=== PATIENT | female | born 1980 | race Caucasian/White ===

== ENCOUNTER → 2017-12-06 | Outpatient (CLI) | payer MEDICARE ==
--- NOTE | 2017-12-06 22:42 | US ---
EXAMINATION TYPE: US thyroid st tissue head/neck DATE OF EXAM: 12/06/2017 COMPARISON: NONE CLINICAL HISTORY: E03.8 HYPOTHYROIDISM; patient stated had radioactive iodine treatment 2004; on thyr oid medication; patient stated has decreasing cerebellum causing ataxia GLAND SIZE: area believed to be thyroid bed is measured Right Lobe: 1.8 x 0.6 x 0.8 cm Overall Parenchyma: heterogenous Left Lobe: 2.1 x 1.0 x 0.3 cm Overall Parenchyma: heterogeneous Isthmus Thickness: 0.1 cm NODULES RIGHT: # of nodules measured on right: 0 LEFT: # of nodules measured on left: 0 ISTHMUS: # of nodules measured in the isthmus: 0 Bilateral neck scanned, no evidence of lymphadenopathy. IMPRESSION: Small heterogeneous remnant thyroid without discrete nodules.
== END | disposition home or self-care (01) ==
LOC: RADUSWWP 16:22
PROVIDERS: ATTEND Internal Medicine Endocrinology, Diabetes & Metabolism
DX: E03.8 Other specified hypothyroidism (principal)
CPT/HCPCS: 76536

== ENCOUNTER → 2017-12-20 | Outpatient (CLI) | payer MEDICARE ==
[2017-12-21 00:08] LABS: ACTH 16.6 pg/mL (0.00-45.99)
== END | disposition home or self-care (01) ==
LOC: LABWHC1 12:33
PROVIDERS: ATTEND Internal Medicine Endocrinology, Diabetes & Metabolism
DX: E03.8 Other specified hypothyroidism (principal); R53.83 Other fatigue
CPT/HCPCS: 36415; 82024; 82533; 84146; 84443

== ENCOUNTER → 2018-01-24 | Outpatient (CLI) | payer MEDICARE ==
[2018-01-24 13:08] LABS: T4, Free (Free Thyroxine) 1.66 ng/dL (0.78-2.19)
== END | disposition home or self-care (01) ==
LOC: LABWHC1 12:21
PROVIDERS: ATTEND Internal Medicine Endocrinology, Diabetes & Metabolism
DX: E03.8 Other specified hypothyroidism (principal)
CPT/HCPCS: 36415; 84439; 84443

== ENCOUNTER → 2018-03-30 | Outpatient (CLI) | payer MEDICARE ==
[2018-03-30 19:21] LABS: ACTH 16.2 pg/mL (0.00-45.99)
== END ==
LOC: LABWHC1 11:01
PROVIDERS: ATTEND Internal Medicine Endocrinology, Diabetes & Metabolism
DX: R53.83 Other fatigue (principal)
CPT/HCPCS: 36415; 82024; 82533; 84146; 84443

== ENCOUNTER → 2018-05-27 | Outpatient (CLI) | payer MEDICARE | LOC: LABWHC1 11:46 | PROVIDERS: ATTEND Internal Medicine Endocrinology, Diabetes & Metabolism | DX: E03.8 Other specified hypothyroidism (principal) | CPT/HCPCS: 36415; 84443 ==

== ENCOUNTER → 2018-07-25 | Outpatient (CLI) | payer MEDICARE ==
--- NOTE | 2018-07-26 09:11 | MR ---
EXAMINATION TYPE: MR brain wo/w con DATE OF EXAM: 07/25/2018 COMPARISON: Prior brain MR 01/14/2013 HISTORY: New onset headache, known spinocerebellar ataxia syndrome TECHNIQUE: Multiplanar, multisequence images of the brain and brainstem is performed without and with IV contras t, utilizing 7.5 mL intravenous Gadavist . FINDINGS: Diffusion weighted images demonstrate no evidence of a recent infarct or other diffusion ab normality. There is no extra-axial fluid collection. Some mild confluent periventricular white foreign er hyperintensity noted on inversion recovery and T2-weighted sequences is conspicuous as compared to prior, focus of hyperintensity in the deep white matter the right frontal lobe axial image 14 is sta ble measuring approximately 4 mm The ventricular system and cisternal spaces are normal in size and a ppearance. The brain volume is age appropriate. Midline structures demonstrate near stable morphology, there is a partially empty sella, appearance m ay have progressed somewhat in the interval. Cerebellar atrophy has progressed. The craniocervical ju nction appears within normal limits. Post contrast images demonstrate no abnormal enhancement. The d ural venous sinuses appear patent. The visualized sinuses are remarkable for mucoperiosteal thickenin g in the bilateral maxillary sinuses, ethmoid air cells, and the globes are intact. IMPRESSION: There has been progression in the cerebellar atrophy as described. Sinus disease and humble tional findings above.
== END | disposition home or self-care (01) ==
LOC: RADMRIMAIN 14:38
PROVIDERS: ATTEND Psychiatry & Neurology Neurology
DX: G31.9 Degenerative disease of nervous system, unspecified (principal); R90.89 Other abnormal findings on diagnostic imaging of central nervous system; G44.52 New daily persistent headache (NDPH); G11.8 Other hereditary ataxias
CPT/HCPCS: 70553; A9585

== ENCOUNTER → 2018-07-25 | Outpatient (CLI) | payer MEDICARE ==
[2018-07-25 13:00] LABS: Basophils # (A) 0.1 k/uL (0-0.2); Basophils % (A) 1 %; Eosinophils # (A) 0.3 k/uL (0-0.7); Eosinophils % (A) 3 %; HCT 42.6 % (34.0-46.0); HGB 13.8 gm/dL (11.4-16.0); Lymphocytes # (A) 2.4 k/uL (1.0-4.8); Lymphocytes % (A) 27 %; MCH 29.5 pg (25.0-35.0); MCHC 32.4 g/dL (31.0-37.0); Monocytes # (A) 0.6 k/uL (0-1.0); Monocytes % (A) 6 %; Neutrophils # (A) 5.4 k/uL (1.3-7.7); Neutrophils % (A) 61 %; Platelet Count 379 k/uL (150-450); RBC 4.68 m/uL (3.80-5.40); RDW 12.3 % (11.5-15.5); WBC 8.8 k/uL (3.8-10.6)
[2018-07-25 18:49] LABS: Albumin 4.3 g/dL (3.80-4.90); Albumin/Globulin Ratio 1.72 (1.60-3.17); Anion Gap 10.2 mmol/L (4.00-12.00); Calcium 9.7 mg/dL (8.7-10.3); Carbon Dioxide 22.8 mmol/L (21.6-31.8); Globulin 2.5 g/dL (1.6-3.3); LDL Cholesterol,Calculated 80.4 mg/dL (0.0-131.0); Potassium 4.5 mmol/L (3.5-5.5); T4, Free (Free Thyroxine) 1.5 ng/dL (0.80-1.80); Total Bilirubin 0.7 mg/dL (0.2-1.2); Total Protein 6.8 g/dL (6.2-8.2); VLDL Calculation 12.6 mg/dL (5.00-40.00)
== END | disposition home or self-care (01) ==
LOC: LABWHC1 11:01
PROVIDERS: ATTEND Internal Medicine Endocrinology, Diabetes & Metabolism
DX: Z00.00 Encounter for general adult medical examination without abnormal findings (principal); E03.8 Other specified hypothyroidism
CPT/HCPCS: 36415; 80053; 80061; 84439; 84443; 85025

== ENCOUNTER → 2018-08-25 | Outpatient (CLI) | payer MEDICARE ==
--- NOTE | 2018-08-25 09:09 | MM ---
Reason for exam: screening (asymptomatic). Baseline mammogram. History: Patient is nulliparous. Physical Findings: Nurse did not find any significant physical abnormalities on exam. MG 3D Screening Mammo W/Cad Bilateral CC, MLO, and XCCL view(s) were taken. The breast tissue is heterogeneously dense. This may lower the sensitivity of mammography. No suspicious calcifications are seen. Bilateral intramammary lymph nodes. These results were verbally communicated with the patient and result sheet given to the patient on 08/25/18. ASSESSMENT: Benign, BI-RAD 2 RECOMMENDATION: Routine screening mammogram of both breasts in 1 year.
== END | disposition home or self-care (01) ==
LOC: RADMAMWWP 08:04
PROVIDERS: ATTEND Family Medicine
DX: Z12.31 Encounter for screening mammogram for malignant neoplasm of breast (principal)
CPT/HCPCS: 77063; 77067

== ENCOUNTER → 2018-09-19 | Outpatient (CLI) | payer MEDICARE | LOC: LABWHC1 17:06 | PROVIDERS: ATTEND Internal Medicine Endocrinology, Diabetes & Metabolism | DX: E03.8 Other specified hypothyroidism (principal) | CPT/HCPCS: 36415; 84443; 84445; 86376 ==

== ENCOUNTER → 2018-12-23 | Outpatient (CLI) | payer MEDICARE | END | disposition home or self-care (01) | LOC: LABWHC1 16:36 | PROVIDERS: ATTEND Internal Medicine Endocrinology, Diabetes & Metabolism | DX: E03.8 Other specified hypothyroidism (principal) | CPT/HCPCS: 36415; 84443 ==

== ENCOUNTER 2019-01-19 13:55 | Emergency (ER) | payer MEDICARE ==
[2019-01-19] MEDS ORDERED: HYDROcodone/APAP 7.5-325MG 1 EACH TAB PO ONE (14:19)
--- NOTE | 2019-01-19 14:29 | ED ---
General Adult HPI - General Stated complaint: Ankle injury Time Seen by Provider: 01/19/19 14:17 Source: RN notes reviewed, old records reviewed - History of Present Illness Initial comments: 38-year-old female patient past medical history of ataxia, movement disorder presents ED chief complaint of fall, left ankle injury. Patient reports that she stumbled, falling forward. Patient reports that she felt as if her left ankle hyper plantar flexed. 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 Patient has not been ambulatory since fall. Denies any other complaints at this time. Denies any trauma to head or neck,. Systemic: Pt denies fatigue, fever/chills, rash. Pt denies weakness, night sweats, weight loss. Neuro: Pt denies headache, visual disturbances, syncope or pre-syncope. HEENT: Pt denies ocular discharge or irritation, otalgia, rhinorrhea, pharyngitis or notable lymphadenopathy. Cardiopulmonary: Pt denies chest pain, SOB, heart palpitations, dyspnea on exertion. Abdominal/GI: Pt denies abdominal pain, n/v/d. : Pt denies dysuria, burning w/ urination, frequency/urgency. Denies new onset urinary or bowel incontinence. MSK: Pt denies loss of strength or function in extremities. Neuro: Pt denies new onset weakness, paresthesias. - Related Data Home Medications Medication Instructions Recorded Confirmed Apple Cider Vinegar Liquid 1 tsp PO Q2D 03/25/17 03/31/17 Cholecalciferol [Vitamin D3] 5,000 unit PO DAILY 03/25/17 03/31/17 Cider Vinegar [Apple Cider Vinegar] 450 mg PO DAILY 03/25/17 03/31/17 Cyanocobalamin (Vitamin B-12) 1,000 mcg PO DAILY 03/25/17 03/31/17 [Vitamin B-12] FLUoxetine HCL [PROzac] 10 mg PO HS 03/25/17 03/31/17 Ferrous Sulfate [Iron (65 MG 325 mg PO DAILY 03/25/17 03/31/17 Elemental)] Levothyroxine Sodium 150 mcg PO DAILY 03/25/17 03/31/17 Tumeric 500 mg PO DAILY 03/25/17 03/31/17 Previous Rx's Medication Instructions Recorded Docusate [Colace] 100 mg PO BID #30 capsule 11/01/17 Hydrocodone/Acetaminophen [[place] 1 each PO Q6HR PRN #10 tab 03/31/17 5-325] Allergies Allergy/AdvReac Type Severity Reaction Status Date / Time Sulfa (Sulfonamide Allergy Itching Verified 03/31/17 07:19 Antibiotics) Review of Systems ROS Statement: Those systems with pertinent positive or pertinent negative responses have been documented in the HPI. ROS Other: All systems not noted in ROS Statement are negative. Past Medical History Past Medical History: Thyroid Disorder Additional Past Medical History / Comment(s): GALLBLADDER DISORDER. SPEECH IMPEDIMENT R/T SPINAL CEREBRAL ATAXIA History of Any Multi-Drug Resistant Organisms: None Reported Past Surgical History: Appendectomy Past Anesthesia/Blood Transfusion Reactions: Motion Sickness Smoking Status: Never smoker - Past Family History Father Family Medical History: Deep Vein Thrombosis (DVT) General Exam - General Exam Comments Initial Comments: Constitutional: NAD, AOX3, Pt has pleasant affect. HEENT: NC/AT, trachea midline, neck supple, no lymphadenopathy. Posterior pharynx non erythematous, without exudates. External ears appear normal, without discharge. Mucous membranes moist. Eyes PERRLA, EOM intact. There is no scleral icterus. No pallor noted. Cardiopulmonary: RRR, no murmurs, rubs or gallops, no JVD noted. Lungs CTAB in anterior and posterior holly. No peripheral edema. Abdominal exam: Abdomen soft and non-distended. Abdomen non-tender to palpation in all 4 quadrants. Bowel sounds active in LLQ. No hepatosplenomegaly. No ecchymosis Neuro: CN II-XII grossly intact. No nuchal rigidity. No raccon eyes, no gillette sign, no hemotympanum. No cervical spinal tenderness. MSK: Right medial malleolus tender to palpation, plantar and dorsiflexion intact but limited secondary to pain, distal pulses intact and equal, refill less than 2 seconds. No proximal tibia/fibular tenderness. Moderate amount of right lateral foot tenderness. No other areas of tenderness and foot. No ecchymoses. Patient placed in a posterior ankle splint, neurovascularly intact after splint placement. No posterior calf tenderness bilaterally, homans sign negative bilaterally. Posterior tibialis and radial pulse +2 bilaterally. Sensation intact in upper and lower extremities. Full active ROM in upper and lower extremities, 5/5 stregnth. Course Vital Signs 01/19/19 14:15 Temperature 98.9 F Pulse Rate 81 Respiratory 18 Rate Blood Pressure 119/72 O2 Sat by Pulse 98 Oximetry Medical Decision Making - Medical Decision Making 38-year-old female patient past medical history of ataxia, movement disorder presents ED chief complaint of fall, left ankle injury. Patient reports that she stumbled, falling forward. Patient reports that she felt as if her left ankle hyper plantar flexed. 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 Patient has not been ambulatory since fall. Denies any other complaints at this time. Denies any trauma to head or neck,. Patient vital signs stable, afebrile. Patient states there is no chance that she can be . Physical exam displayed: Right medial malleolus tender to palpation, plantar and dorsiflexion intact but limited secondary to pain, distal pulses intact and equal, refill less than 2 seconds. No proximal tibia/fibular tenderness. Moderate amount of right lateral foot tenderness. No other areas of tenderness and foot. No ecchymoses. Patient placed in a posterior ankle splint, neurovascularly intact after splint placement. Plain film of foot and ankle displaced a minimally displaced spiral type fracture to the lateral malleolus. Patient placed in a posterior ankle splint, patient will use wheelchair at home, will not bear weight. We discharge, follow up with primary care provider and orthopedic consult in 1-2 days. Case discussed with Dr. Dunham. Disposition Clinical Impression: Lateral malleolar fracture Disposition: HOME SELF-CARE Condition: Stable Instructions (If sedation given, give patient instructions): Ankle Fracture (ED) Additional Instructions: Patient to adhere to previously discussed treatment plan and will take medication(s) as directed. Patient to follow up with PCP in 1-2 days. Patient to return to ED if symptoms do not improve. Follow-up with orthopedic consult tomorrow. Do not bear weight. Use wheelchair at home. Return to ER if condition worsens. Is patient prescribed a controlled substance at d/c from ED?: No Referrals: Rahul Greer MD [Primary Care Provider] - 1-2 days Catarino Dodson PAC [PHYSICIAN MAINTENANCE MECHANIC] - 1-2 days
--- NOTE | 2019-01-19 14:57 | XR ---
EXAMINATION TYPE: XR ankle complete LT, XR foot complete LT DATE OF EXAM: 01/19/2019 CLINICAL HISTORY: Pain after falling injury today. TECHNIQUE: Frontal, lateral and oblique images of the left ankle and foot are obtained. COMPARISON: None. FINDINGS: There is acute spiral minimally displaced fracture through the lateral malleolus at level of ankle mortise. The medial and posterior malleoli are intact. Ankle mortise appears within normal l imits. Mild to moderate lateral soft tissue swelling is seen. There is no acute fracture or dislocation evident in the left foot. Flexion distal third through fift h toes is present. Overlying soft tissue shows mild subcutaneous edema. IMPRESSION: There is acute minimally displaced spiral type fracture through lateral malleolus. (Initial encounter closed type posttraumatic fracture)
[2019-01-19] MEDS ORDERED: ACET/COD 300 MG/30 MG STARTER PACK 6 TAB BTL PO STA (15:17)
[2019-01-19 15:39] VITALS: BP 125/65; PULSE 70; RESP 17; TEMP 99.1
== END 2019-01-19 15:40 | disposition home or self-care (01) ==
LOC: EC 13:55
DX: S82.62XA Displaced fracture of lateral malleolus of left fibula, initial encounter for closed fracture (principal); E07.9 Disorder of thyroid, unspecified; F32.9 Major depressive disorder, single episode, unspecified; Z88.2 Allergy status to sulfonamides; Z79.890 Hormone replacement therapy; Z79.899 Other long term (current) drug therapy; W01.0XXA Fall on same level from slipping, tripping and stumbling without subsequent striking against object, initial encounter; Y93.89 Activity, other specified; Y92.009 Unspecified place in unspecified non-institutional (private) residence as the place of occurrence of the external cause
CPT/HCPCS: 29515; 99284

== ENCOUNTER 2019-02-19 13:54 | Emergency (ER) | payer MEDICARE ==
[2019-02-19 13:59] VITALS: TEMP 98.5
[2019-02-19] MEDS ORDERED: MORPHINE SULFATE 4 MG/ML SYRINGE IV STA (14:41)
[2019-02-19] MEDS ORDERED: SODIUM CHLORIDE 0.9% 1,000 ML IV STA (14:41)
[2019-02-19 15:04] LABS: Basophils # (A) 0.1 k/uL (0-0.2); Basophils % (A) 1 %; Eosinophils # (A) 0.4 k/uL (0-0.7); Eosinophils % (A) 4 %; HCT 40.7 % (34.0-46.0); HGB 13.7 gm/dL (11.4-16.0); Lymphocytes # (A) 1.6 k/uL (1.0-4.8); Lymphocytes % (A) 17 %; MCH 29.7 pg (25.0-35.0); MCHC 33.8 g/dL (31.0-37.0); MCV 87.9 fL (80.0-100.0); Mean Platelet Volume 6.2; Monocytes # (A) 0.6 k/uL (0-1.0); Monocytes % (A) 6 %; Neutrophils # (A) 6.5 k/uL (1.3-7.7); Neutrophils % (A) 70 %; Platelet Count 401 k/uL (150-450); RBC 4.63 m/uL (3.80-5.40); WBC 9.2 k/uL (3.8-10.6)
--- NOTE | 2019-02-19 15:06 | ED ---
Headache HPI - General Chief Complaint: Headache Stated Complaint: Head and Neck Pain Time Seen by Provider: 02/19/19 14:02 Source: RN notes reviewed, old records reviewed Mode of arrival: wheelchair Limitations: no limitations - History of Present Illness Initial Comments: This is a 38-year-old female the ER for evaluation patient resents today for ramiro luation of neck pain significant left-sided neck tenderness. Patient thought she may have slept wrong but is unable to find comfortable today. Patient did take a [place] with no help. Patient denies trauma no fevers. No neurological complaints. Patient does have significant history of neurologic disease cerebellar ataxia. No new medications. Only new medication is a [place] which she has further ankle fracture which is currently casted. MD Complaint: headache, other (Left-sided neck pain) -: hour(s) Onset Description: gradual Location: left, occipital Severity: severe Severity scale (1-10): 8 Quality: aching, sharp Consistency: constant Improves With: nothing Worsens With: none Context: occurred at rest Associated Symptoms: neck stiffness Treatments Prior to Arrival: none - Related Data Home Medications Medication Instructions Recorded Confirmed FLUoxetine HCL [PROzac] 20 mg PO DAILY 02/19/19 02/19/19 Hydrocodone/Acetaminophen [[place] 1 tab PO Q6HR PRN 02/19/19 02/19/19 5-325] Levothyroxine Sodium [Synthroid] 100 mcg PO DAILY 02/19/19 02/19/19 Allergies Allergy/AdvReac Type Severity Reaction Status Date / Time Sulfa (Sulfonamide Allergy Itching Verified 02/19/19 14:35 Antibiotics) Review of Systems ROS Statement: Those systems with pertinent positive or pertinent negative responses have been documented in the HPI. ROS Other: All systems not noted in ROS Statement are negative. Past Medical History Past Medical History: Thyroid Disorder Additional Past Medical History / Comment(s): GALLBLADDER DISORDER. SPEECH IMPEDIMENT R/T SPINAL CEREBRAL ATAXIA History of Any Multi-Drug Resistant Organisms: None Reported Past Surgical History: Appendectomy Past Anesthesia/Blood Transfusion Reactions: Motion Sickness Past Psychological History: Depression Smoking Status: Never smoker - Past Family History Father Family Medical History: Deep Vein Thrombosis (DVT) General Exam Limitations: no limitations General appearance: alert, in no apparent distress Head exam: Present: atraumatic, normocephalic, normal inspection Eye exam: Present: normal appearance, PERRL, EOMI. Absent: scleral icterus, conjunctival injection, periorbital swelling ENT exam: Present: normal exam, mucous membranes moist Neck exam: Present: normal inspection, other (Does have left-sided paracervical tenderness). Absent: tenderness, meningismus, lymphadenopathy Respiratory exam: Present: normal lung sounds bilaterally. Absent: respiratory distress, wheezes, rales, rhonchi, stridor Cardiovascular Exam: Present: regular rate, normal rhythm, normal heart sounds. Absent: systolic murmur, diastolic murmur, rubs, gallop, clicks GI/Abdominal exam: Present: soft, normal bowel sounds. Absent: distended, tenderness, guarding, rebound, rigid Extremities exam: Present: normal inspection, full ROM, normal capillary refill. Absent: tenderness, pedal edema, joint swelling, calf tenderness Back exam: Present: normal inspection Neurological exam: Present: alert, oriented X3, CN II-XII intact Psychiatric exam: Present: normal affect, normal mood Skin exam: Present: warm, dry, intact, normal color. Absent: rash Course Vital Signs 02/19/19 02/19/19 02/19/19 13:57 15:30 16:30 Temperature 98.5 F Pulse Rate 87 74 Respiratory 16 18 18 Rate Blood Pressure 123/81 120/88 115/88 O2 Sat by Pulse 99 93 L 99 Oximetry - Reevaluation(s) Reevaluation #1: 02/19/19 15:19 Medical records reviewed Reevaluation #2: 02/19/19 15:19 Did speak with patient's neurologist in regards to patient's symptoms, Medical Decision Making - Medical Decision Making 38 female the ER was significant left-sided paraspinal tenderness, will try Li doderm locally patient to continue [place] for pain and can be discharged home - Lab Data Result diagrams: 02/19/19 14:53 02/19/19 14:53 Lab Results 02/19/19 02/19/19 Range/Units 14:53 14:53 WBC 9.2 (3.8-10.6) k/uL RBC 4.63 (3.80-5.40) m/uL Hgb 13.7 (11.4-16.0) gm/dL Hct 40.7 (34.0-46.0) % MCV 87.9 (80.0-100.0) fL MCH 29.7 (25.0-35.0) pg MCHC 33.8 (31.0-37.0) g/dL RDW 13.0 (11.5-15.5) % Plt Count 401 (150-450) k/uL Neutrophils % 70 % Lymphocytes % 17 % Monocytes % 6 % Eosinophils % 4 % Basophils % 1 % Neutrophils # 6.5 (1.3-7.7) k/uL Lymphocytes # 1.6 (1.0-4.8) k/uL Monocytes # 0.6 (0-1.0) k/uL Eosinophils # 0.4 (0-0.7) k/uL Basophils # 0.1 (0-0.2) k/uL Sodium 138 (137-145) mmol/L Potassium 3.9 (3.5-5.1) mmol/L Chloride 104 (98-107) mmol/L Carbon Dioxide 24 (22-30) mmol/L Anion Gap 10 mmol/L BUN 12 (7-17) mg/dL Creatinine 0.85 (0.52-1.04) mg/dL Est GFR (CKD-EPI)AfAm >90 (>60 ml/min/1.73 sqM) Est GFR (CKD-EPI)NonAf 86 (>60 ml/min/1.73 sqM) Glucose 92 (74-99) mg/dL Calcium 9.6 (8.4-10.2) mg/dL Total Bilirubin 0.7 (0.2-1.3) mg/dL AST 53 H (14-36) U/L ALT 53 H (9-52) U/L Alkaline Phosphatase 266 H (38-126) U/L Total Protein 8.1 (6.3-8.2) g/dL Albumin 4.5 (3.5-5.0) g/dL - Radiology Data Radiology results: report reviewed (CT brain C-spine CT head and neck negative for acute disease), image reviewed Disposition Clinical Impression: Headache, Neck pain Disposition: HOME SELF-CARE Condition: Good Instructions (If sedation given, give patient instructions): Acute Headache (ED) Is patient prescribed a controlled substance at d/c from ED?: No Referrals: Rahul Greer MD [Primary Care Provider] - 1-2 days
[2019-02-19 15:13] LABS: ALT 53 U/L (9-52); AST 53 U/L (14-36); African American GFR (CKD) >90 (>60 ml/min/1.73 sqM); Albumin 4.5 g/dL (3.5-5.0); Alkaline Phosphatase 266 U/L (38-126); Anion Gap 10 mmol/L; Blood Urea Nitrogen 12 mg/dL (7-17); Calcium 9.6 mg/dL (8.4-10.2); Carbon Dioxide 24 mmol/L (22-30); Chloride 104 mmol/L (98-107); Glucose 92 mg/dL (74-99); Potassium 3.9 mmol/L (3.5-5.1); Sodium 138 mmol/L (137-145); Total Bilirubin 0.7 mg/dL (0.2-1.3); Total Protein 8.1 g/dL (6.3-8.2)
--- NOTE | 2019-02-19 16:06 | CT ---
EXAMINATION TYPE: CT brain philip ariza DATE OF EXAM: 02/19/2019 COMPARISON: None HISTORY: Head/neck pain. Pt sent to ER by neurologist. Pt hx speech impediment R/T spinal cerebral at axia. Pt experiencing tremors. CT DLP: 1538.5 mGycm Automated exposure control for dose reduction was used. TECHNIQUE: CT scan of the head and cervical spine are performed without contrast. FINDINGS: Ventricles have normal size. There is no mass effect nor midline shift. There is no sign of intracranial hemorrhage. The calvarium is intact. There is cerebellar atrophy. Cervical vertebra have fairly normal spacing and alignment. Posterior elements are intact. Facet join ts are intact. Skull base is intact. IMPRESSION: There is moderate cerebellar diffuse atrophy. No acute intracranial abnormality. Negative CT scan cervical spine. No fracture.
[2019-02-19 16:11] VITALS: RESP 18
[2019-02-19] MEDS ORDERED: HYDROmorphone 0.5 MG/0.5 ML SYRINGE IVP STA (16:22)
[2019-02-19 16:31] VITALS: BP 115/88; PULSE 74
--- NOTE | 2019-02-19 16:33 | CT ---
EXAMINATION TYPE: CT angio head neck DATE OF EXAM: 02/19/2019 HISTORY: Head/neck pain. Pt sent to ER by neurologist. Pt hx speech impediment R/T spinal cerebral at axia. Pt experiencing tremors COMPARISON: CT DLP: 640.1 mGycm. Automated Exposure Control for Dose Reduction was Utilized. TECHNIQUE: CTA scan of the neck is performed with IV Contrast, patient injected with 65 mL of Isovue 370, axial images are obtained, coronal and sagittal reformatted images are reviewed. Three-D recons tructed images are created on an independent workstation and reviewed. FINDINGS: There is normal branching pattern of the great vessels on the aortic arch. There is arterial flow in the subclavian arteries bilaterally. There is arterial flow in the common internal and external carot id arteries bilaterally. There is wide patency of the carotid artery bifurcations. There is bilateral arterial flow in the vertebral arteries. Basilar artery fills mainly from the right side. There is n o evidence of carotid or vertebral artery aneurysm or dissection. There is no evidence of hemodynamic stenosis. There is arterial flow in the anterior middle and posterior cerebral arteries. There is arterial flow in the vertebrobasilar artery system. I see no evidence of hemodynamic stenosis. There is normal con trast opacification of the venous sinuses. There is moderate cerebellar cortical atrophy noted. There is no sign of intracranial aneurysm or neovascularity. There is no mass effect. IMPRESSION: Negative CT angiogram of the neck. Negative CT angiogram of the brain.
[2019-02-19] MEDS ORDERED: LIDOCAINE 4% CREAM 5 GM TUBE TOPICAL STA (16:51)
== END 2019-02-19 17:24 | disposition home or self-care (01) ==
LOC: EC 13:54
DX: R51 Headache (principal); M54.2 Cervicalgia; E07.9 Disorder of thyroid, unspecified; F32.9 Major depressive disorder, single episode, unspecified; Z86.69 Personal history of other diseases of the nervous system and sense organs; Z87.19 Personal history of other diseases of the digestive system; Z90.49 Acquired absence of other specified parts of digestive tract; Z79.890 Hormone replacement therapy; Z79.899 Other long term (current) drug therapy; Z88.2 Allergy status to sulfonamides
CPT/HCPCS: 36415; 80053; 85025; 72125; 70496; 70450; 70498; 99284; 96374; 96375; 96361; J2270; J1170; Q9967

== ENCOUNTER → 2019-04-24 | Outpatient (CLI) | payer MEDICARE ==
[2019-04-24 11:07] LABS: Basophils # (A) 0.1 k/uL (0-0.2); Basophils % (A) 1 %; Eosinophils # (A) 0.4 k/uL (0-0.7); Eosinophils % (A) 4 %; Lymphocytes # (A) 2.2 k/uL (1.0-4.8); Lymphocytes % (A) 24 %; MCH 29.8 pg (25.0-35.0); MCHC 32.6 g/dL (31.0-37.0); MCV 91.4 fL (80.0-100.0); Mean Platelet Volume 5.6; Monocytes # (A) 0.6 k/uL (0-1.0); Monocytes % (A) 7 %; Neutrophils # (A) 5.6 k/uL (1.3-7.7); Neutrophils % (A) 63 %; Platelet Count 403 k/uL (150-450); RBC 4.37 m/uL (3.80-5.40); RDW 12.9 % (11.5-15.5)
[2019-04-24 16:00] LABS: Luteinizing Hormone 8.3 mIU/mL
[2019-04-24 16:03] LABS: Albumin 4.3 g/dL (3.80-4.90); Albumin/Globulin Ratio 1.65 (1.60-3.17); Anion Gap 6.5 mmol/L (4.00-12.00); BUN/Creat Ratio 12.22 Ratio (12.00-20.00); Calcium 9.6 mg/dL (8.7-10.3); Carbon Dioxide 25.5 mmol/L (21.6-31.8); Globulin 2.6 g/dL (1.6-3.3); Non-African American GFR(CKD) 79.4 (60.0-200.0); Potassium 4.1 mmol/L (3.5-5.5); T4, Free (Free Thyroxine) 0.8 ng/dL (0.80-1.80); Total Bilirubin 0.6 mg/dL (0.2-1.2); Total Protein 6.9 g/dL (6.2-8.2)
[2019-04-25 14:18] LABS: Estrogens Total 242 pg/mL
== END | disposition home or self-care (01) ==
LOC: LABWHC1 10:08
PROVIDERS: ATTEND Family Medicine
DX: N95.1 Menopausal and female climacteric states (principal); R74.8 Abnormal levels of other serum enzymes; E05.90 Thyrotoxicosis, unspecified without thyrotoxic crisis or storm
CPT/HCPCS: 36415; 80053; 82040; 82150; 82672; 83001; 83002; 83690; 84270; 84403; 84439; 84443; 84481; 85025; 86376

== ENCOUNTER → 2019-05-19 | Outpatient (CLI) | payer MEDICARE ==
--- NOTE | 2019-05-19 09:17 | US ---
EXAMINATION TYPE: US liver DATE OF EXAM: 05/19/2019 COMPARISON: NONE CLINICAL HISTORY: R74.8 abnormal levels of other serum enzymes. EXAM MEASUREMENTS: Liver Length: 14.3 cm Gallbladder Wall: Surgically absent CBD: 0.4 cm Right Kidney: 9.8 x 4.2 x 4.1 cm Pancreas: Obscured by bowel gas Liver: There is a 0.8 x 0.6 cm x 0.6 hyperechoic area in the left lobe liver could be a small les ioma. Gallbladder: Surgically absent Evidence for sonographic Cage's sign: No CBD: wnl as visualized, distal portion obscured by bowel gas Right Kidney: No hydronephrosis or masses seen IMPRESSION: 1. Probable small hemangioma within the liver.
== END | disposition home or self-care (01) ==
LOC: RADUSWWP 08:31
PROVIDERS: ATTEND Family Medicine
DX: R74.8 Abnormal levels of other serum enzymes (principal)
CPT/HCPCS: 76705

== ENCOUNTER → 2019-06-16 | Outpatient (CLI) | payer MEDICARE | END | disposition home or self-care (01) | LOC: LABWHC1 11:44 | PROVIDERS: ATTEND Internal Medicine Endocrinology, Diabetes & Metabolism | DX: E03.8 Other specified hypothyroidism (principal) | CPT/HCPCS: 36415; 84443 ==

== ENCOUNTER → 2019-11-14 | Outpatient (CLI) | payer MEDICARE ==
--- NOTE | 2019-11-14 14:37 | MR ---
EXAMINATION TYPE: MR brain wo con DATE OF EXAM: 11/14/2019 COMPARISON: 07/25/2018 HISTORY: Cerebellar ataxia syndrome, compare to prior MR on progression of cerebellar atrophy CONTRAST: Performed utilizing 0 mL intravenous Gadavist gadolinium contrast. TECHNIQUE: Multiplanar, multiecho imaging on a 3.0 Jessica magnet is performed through the brain. Stud y is performed within 24 hours of arrival to the hospital. The craniovertebral junction is normal. The pituitary is normal. Diffusion-weighted imaging is performed. No abnormal hyperintensity is present to suggest an acute i ntracranial infarct or acute ischemic change. There are scattered punctate areas of hyperintensity on T2 and Inversion Recovery weighted sequences which are non-specific but can be related to microvascular ischemic changes. Largest area in the subc ortical white matter change in the right frontal lobe measuring 0.4 cm. Some periventricular white ma tter changes present. Some minimal change may be within the brainstem. There is prominent cerebellar fovea. Advanced cerebellar atrophy is present on the remainder of the brain. Ventricles and sulci are otherwise appropriate for the patient age. COMPARISON: Findings appear stable over the interval from 07/25/2018. Cerebral atrophy and white matte r changes appear unchanged. IMPRESSIONS: 1. Prominent stable cerebellar atrophy out of proportion with the remainder of the brain.
== END | disposition home or self-care (01) ==
LOC: RADMRIMAIN 12:58
PROVIDERS: ATTEND Psychiatry & Neurology Neurology
DX: G11.9 Hereditary ataxia, unspecified (principal); G31.9 Degenerative disease of nervous system, unspecified
CPT/HCPCS: 70551

== ENCOUNTER → 2019-12-12 | Outpatient (CLI) | payer MEDICARE | END | disposition home or self-care (01) | LOC: LABWHC1 13:41 | PROVIDERS: ATTEND Internal Medicine Endocrinology, Diabetes & Metabolism | DX: E03.8 Other specified hypothyroidism (principal) | CPT/HCPCS: 36415; 84443 ==

== ENCOUNTER → 2020-06-11 | Outpatient (CLI) | payer MEDICARE ==
[2020-06-11 13:23] LABS: HCG,Qualitative Serum Detected
== END | disposition home or self-care (01) ==
LOC: LABWHC1 12:17
PROVIDERS: ATTEND Internal Medicine Endocrinology, Diabetes & Metabolism
DX: Z33.1 Pregnant state, incidental (principal); E03.8 Other specified hypothyroidism
CPT/HCPCS: 36415; 84439; 84443; 84480; 84703

== ENCOUNTER → 2020-09-03 | Outpatient (CLI) | payer MEDICARE, OTHER | END | disposition home or self-care (01) | LOC: LABWHC1 13:22 | PROVIDERS: ATTEND Internal Medicine Endocrinology, Diabetes & Metabolism | DX: E03.8 Other specified hypothyroidism (principal) | CPT/HCPCS: 36415; 84443 ==

== ENCOUNTER → 2020-10-22 | Outpatient (CLI) | payer MEDICARE, OTHER ==
[2020-10-23 14:00] LABS: T4, Free (Free Thyroxine) 1.4 ng/dL (0.80-1.80)
== END | disposition home or self-care (01) ==
LOC: LABWHC1 14:54
PROVIDERS: ATTEND Internal Medicine Endocrinology, Diabetes & Metabolism
DX: E03.8 Other specified hypothyroidism (principal)
CPT/HCPCS: 36415; 84439; 84443

== ENCOUNTER → 2020-12-31 | Outpatient (CLI) | payer MEDICARE, OTHER ==
[2021-01-01 09:55] LABS: T4, Free (Free Thyroxine) 1.2 ng/dL (0.80-1.80)
== END | disposition home or self-care (01) ==
LOC: LABWHC1 15:24
PROVIDERS: ATTEND Internal Medicine Endocrinology, Diabetes & Metabolism
DX: E03.8 Other specified hypothyroidism (principal)
CPT/HCPCS: 36415; 84439; 84443

== ENCOUNTER 2021-06-03 17:50 | Emergency (ER) | payer MEDICARE, OTHER ==
[2021-06-03 18:45] VITALS: BP 98/65; PULSE 80; RESP 20; TEMP 99.4
--- NOTE | 2021-06-03 20:46 | ED ---
URI HPI - General Chief Complaint: Upper Respiratory Infection Stated Complaint: SOB Time Seen by Provider: 06/03/21 20:20 Source: patient Mode of arrival: wheelchair Limitations: no limitations - History of Present Illness Initial Comments: 41-year-old female patient presents to the emergency department today for evaluation of body aches, cough, shortness of breath, fevers for the last 10 days. Patient states she was exposed to COVID-19 so assumed she had it. States that she is not getting better so she came in for further evaluation. She has not been taking any medication other than [id number] Aleve-D. States she has taken Tylenol intermittently. Reports nausea, no vomiting. Denies any diarrhea. 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 Denies any other medical problems. - Related Data Home Medications Medication Instructions Recorded Confirmed FLUoxetine HCL [PROzac] 20 mg PO DAILY 02/19/19 02/19/19 Hydrocodone/Acetaminophen [[place] 1 tab PO Q6HR PRN 02/19/19 02/19/19 5-325] Levothyroxine Sodium [Synthroid] 100 mcg PO DAILY 02/19/19 02/19/19 Previous Rx's Medication Instructions Recorded Albuterol Sulfate [Proair Hfa] 1 - 2 puff INHALATION Q6HR PRN 06/03/21 #8.5 gm Dexamethasone 6 mg PO DAILY #10 tablet 06/03/21 Metoclopramide [Reglan] 10 mg PO Q8H PRN #20 tab 06/03/21 guaiFENesin-DM 600/30MG [Mucinex 2 each PO Q12HR PRN #20 tab 06/03/21 Dm] Allergies Allergy/AdvReac Type Severity Reaction Status Date / Time Sulfa (Sulfonamide Allergy Itching Verified 06/03/21 18:45 Antibiotics) Review of Systems ROS Statement: Those systems with pertinent positive or pertinent negative responses have been documented in the HPI. ROS Other: All systems not noted in ROS Statement are negative. Past Medical History Past Medical History: Thyroid Disorder Additional Past Medical History / Comment(s): GALLBLADDER DISORDER. SPEECH IMPEDIMENT R/T SPINAL CEREBRAL ATAXIA History of Any Multi-Drug Resistant Organisms: None Reported Past Surgical History: Appendectomy Past Anesthesia/Blood Transfusion Reactions: Motion Sickness Past Psychological History: Depression Smoking Status: Never smoker Past Alcohol Use History: None Reported Past Drug Use History: None Reported - Past Family History Father Family Medical History: Deep Vein Thrombosis (DVT) General Exam Limitations: no limitations General appearance: alert, in no apparent distress, other (This is a well-de veloped, well-nourished adult female in no acute distress.) ENT exam: Present: normal exam, normal oropharynx, mucous membranes moist Respiratory exam: Present: normal lung sounds bilaterally. Absent: respiratory distress, wheezes, rales, rhonchi, stridor Cardiovascular Exam: Present: regular rate, normal rhythm, normal heart sounds. Absent: systolic murmur, diastolic murmur, rubs, gallop, clicks GI/Abdominal exam: Present: soft, normal bowel sounds. Absent: distended, tenderness, guarding, rebound, rigid Neurological exam: Present: alert, oriented X3, CN II-XII intact Psychiatric exam: Present: normal affect, normal mood Skin exam: Present: warm, dry, intact, normal color. Absent: rash Course Vital Signs 06/03/21 18:42 Temperature 99.4 F Pulse Rate 80 Respiratory 20 Rate Blood Pressure 98/65 O2 Sat by Pulse 98 Oximetry Medical Decision Making - Medical Decision Making 41-year-old female patient presents to the emergency department today for evaluation of body aches, upper respiratory symptoms, cough, shortness of breath started about 10 days ago. She did test positive for COVID-19 here. Oxygen saturation is 98%. She does not meet criteria to receive monoclonal antibodies. Be given several prescriptions for symptom relief. Started on steroids. She is instructed to follow-up with her primary care physician for recheck in 1-2 days. Return parameters were discussed in detail. She verbalizes understanding and agrees with this plan. My attending is Dr. Melendez. - Lab Data Lab Results 06/03/21 Range/Units 18:46 Coronavirus (PCR) Detected A (Not Detectd) Disposition Clinical Impression: COVID-19 Disposition: HOME SELF-CARE Condition: Good Instructions (If sedation given, give patient instructions): Coronavirus Disease 2019 (COVID-19) Additional Instructions: Tips to help you feel better: -Maintain adequate fluid intake - especially water. -Rest, you are healing your body will require extra sleep. -Eat even if you do not feel like it - broth, jello, toast are fine if you cannot eat full meals. -Take tylenol and motrin alternating (if you have no allergies or have not been instructed to avoid these medications) to help with body aches and fevers. -Obtain over the counter vitamin C, zinc, and vitamin D3. -Take medications as prescribed. Follow-up with your primary care physician for recheck in 1-2 days. Return for any new, worsening, or concerning symptoms. Prescriptions: Dexamethasone 6 mg PO DAILY #10 tablet guaiFENesin-DM 600/30MG [Mucinex Dm] 2 each PO Q12HR PRN #20 tab PRN Reason: Cough Albuterol Sulfate [Proair Hfa] 1 - 2 puff INHALATION Q6HR PRN #8.5 gm PRN Reason: Shortness Of Breath Metoclopramide [Reglan] 10 mg PO Q8H PRN #20 tab PRN Reason: Vomiting Is patient prescribed a controlled substance at d/c from ED?: No Referrals: Rahul Greer MD [Primary Care Provider] - 1-2 days Time of Disposition: 20:46
== END 2021-06-03 20:51 | disposition home or self-care (01) ==
LOC: EC 17:50
DX: U07.1 COVID-19 (principal); F32.A Depression, unspecified; Z79.890 Hormone replacement therapy; Z79.899 Other long term (current) drug therapy; Z79.51 Long term (current) use of inhaled steroids; Z88.2 Allergy status to sulfonamides
CPT/HCPCS: 87635; 99284

== ENCOUNTER → 2022-04-06 | Outpatient (CLI) | payer MEDICARE, OTHER ==
--- NOTE | 2022-04-06 13:02 | US ---
EXAMINATION TYPE: US extremity nonvasc mass LT DATE OF EXAM: 04/06/2022 COMPARISON: NONE CLINICAL HISTORY: R22.40 Mass of left lower limb. Left lateral upper thigh small palpable lump x 2 we ek FINDINGS: Left thigh: 1.1 x 1.0 x 1.3 cm ill defined hypoechoic area with echogenic focus seen at patient's are a of concern . No color flow identified. No fluid collection. IMPRESSION: Indeterminant 1.3 cm hypoechoic area with calcification in the soft tissues of the left thigh without internal vascularity. Etiologies include fat necrosis versus other. Further evaluation with MRI is r ecommended.
== END | disposition home or self-care (01) ==
LOC: RADUSWWP 12:28
PROVIDERS: ATTEND Family Medicine
DX: R22.42 Localized swelling, mass and lump, left lower limb (principal)

== ENCOUNTER → 2023-01-20 | Outpatient (CLI) | payer MEDICARE, OTHER ==
[2023-01-20 16:17] LABS: Basophils # (A) 0.05 X 10*3/uL (0.00-0.10); Basophils % (A) 0.6 %; Eosinophils # (A) 0.13 X 10*3/uL (0.04-0.35); Eosinophils % (A) 1.7 %; HCT 37.2 % (37.2-46.3); HGB 12.1 d/dL (12.0-15.0); Lymphocytes # (A) 1.78 X 10*3/uL (0.90-5.00); Lymphocytes % (A) 22.9 %; MCH 26.8 pg (27.0-32.0); MCHC 32.5 d/dL (32.0-37.0); MCV 82.3 FL (80.0-97.0); Mean Platelet Volume 10.1 FL (9.5-12.2); Monocytes # (A) 0.67 X 10*3/uL (0.20-1.00); Monocytes % (A) 8.6 %; NRBC Per 100 WBC 0 X 10*3/uL (0.00-0.01); Neutrophils % (A) 65.8 %; Platelet Count 325 X 10*3/uL (140-440); RBC 4.52 X 10*6/uL (4.10-5.20); RDW 13.3 % (11.5-14.5); WBC 7.76 X 10*3/uL (4.50-10.00)
[2023-01-20 16:39] LABS: Albumin 4.4 d/dL (3.8-4.9); Albumin/Globulin Ratio 1.42 Ratio (1.60-3.17); Globulin 3.1 d/dL (1.6-3.3); Protein, Total 7.5 d/dL (6.2-8.2); Total Protein 7.5 d/dL (6.2-8.2)
[2023-01-20 16:59] LABS: ALT 32 U/L (8-44); AST 31 U/L (13-35); Alkaline Phosphatase 275 U/L (41-126); Calcium 9.6 mg/dL (8.7-10.3); Carbon Dioxide 21.9 mmol/L (21.6-31.8); Ceruloplasmin 30.4 mg/dL (20.0-60.0); Chloride 107 mmol/L (96-109); Glucose 93 mg/dL (70-110); Sodium 140 mmol/L (135-145); Total Bilirubin 0.3 mg/dL (0.3-1.2)
[2023-01-20 17:52] LABS: Hepatitis C IgG Antibody Nonreactive
== END | disposition home or self-care (01) ==
LOC: LABWHC1 11:46
PROVIDERS: ATTEND Internal Medicine Gastroenterology
DX: R74.8 Abnormal levels of other serum enzymes (principal)
CPT/HCPCS: 36415; 80053; 82103; 82390; 83516; 84165; 85025; 86038; 86803

== ENCOUNTER → 2023-02-05 | Outpatient (CLI) | payer MEDICARE, OTHER ==
--- NOTE | 2023-02-09 08:57 | MM ---
Reason for Exam: Screening (asymptomatic). Last mammogram was performed 4 year(s) and 6 month(s) ago. Patient History: Menarche at age 11. First Full-Term at age 1. Risk Values: Briana 5 year model risk: 0.6%. NCI Lifetime model risk: 7.1%. Prior Study Comparison: 08/25/2018 Bilateral Screening Mammogram, [facility]. Tissue Density: The breast tissue is heterogeneously dense. This may lower the sensitivity of mammography. Findings: Analyzed By CAD. No suspicious microcalcifications are evident. There is a new nodular density 7 cm from the nipple upper outer quadrant right breast. Ultrasound is recommended. Overall Assessment: Incomplete: need additional imaging evaluation, BI-RAD 0 Management: Diagnostic Breast Ultrasound of the right breast. . Patient should continue monthly self-breast exams. A clinical breast exam by your physician is recommended on an annual basis. This exam should not preclude additional follow-up of suspicious palpable abnormalities. Note on Briana scores and lifetime risk: 1. A Briana score greater than 3% is considered moderate risk. If this is the case, consider specialist referral to assess eligibility for a risk reducing agent. 2. If overall lifetime risk for the development of breast cancer is 20% or higher, the patient may qualify for future screening with alternating mammogram and breast MRI. Electronically signed and approved by: Greg Grady M.D. Radiologis
== END | disposition home or self-care (01) ==
LOC: RADMAMWWP 10:56
PROVIDERS: ATTEND Family Medicine
DX: Z12.31 Encounter for screening mammogram for malignant neoplasm of breast (principal)
CPT/HCPCS: 77063; 77067

== ENCOUNTER → 2023-07-16 | Outpatient (CLI) | payer MEDICARE, OTHER ==
--- NOTE | 2023-07-16 11:53 | USB ---
Reason for Exam: Follow-up at short interval from prior study. Patient History: Menarche at age 11. First Full-Term at age 1. Last menstrual period: 07/14/2023 Risk Values: Briana 5 year model risk: 0.6%. NCI Lifetime model risk: 7.0%. Technique: Method: Targeted. Doppler: Color. Patient Position: Supine. Prior Study Comparison: 08/25/2018 Bilateral Screening Mammogram, [facility]. 02/05/2023 Bilateral MG 3D screening mammo w/cad, [facility]. Findings: The upper outer quadrant of the right breast, the axilla of the right breast and the retroareolar of the right breast were scanned. Targeted ultrasound upper outer quadrant right breast 9:00 to 12:00 including scanning of the subareolar region and axilla. At the 10:00 position, 4 cm from the nipple, there is either an intramammary lymph node or cyst cluster measuring 8 x 7 x 4 mm, likely mammographic correlate. As the nodule appears larger from prior, it can be reassessed at a 6 month follow-up mammogram. At the 10:00 position, 7 cm from the nipple, there is a tiny benign 3 mm cyst. Prominent but nonenlarged lymph node. No other solid or cystic lesion. Overall Assessment: Probably benign, BI-RAD 3 Management: Diagnostic Mammogram of the right breast in 6 months. A clinical breast exam by your physician is recommended on an annual basis and results should be correlated with mammographic findings. This exam should not preclude additional follow-up of suspicious palpable abnormalities. Results were given to the patient verbally at the time of exam. Electronically signed and approved by: Sincere Okeefe M.D. Radiologist
== END | disposition home or self-care (01) ==
LOC: RADUSWWP 10:54
PROVIDERS: ATTEND Family Medicine
DX: N63.10 Unspecified lump in the right breast, unspecified quadrant (principal); R92.8 Other abnormal and inconclusive findings on diagnostic imaging of breast

== ENCOUNTER → 2023-07-16 | Outpatient (CLI) | payer MEDICARE, OTHER ==
--- NOTE | 2023-07-16 14:53 | CA ---
Transthoracic Echo Report Name: Johanne Velasquez Age: 43 Gender: F : 1980 Exam Date: 07/16/2023 10:02 Exam Location: [facility] Ht (in): 64 Wt (lb): 160 Ordering Physician: Rahul Greer MD Attending/Referring Phys: Rahul Greer MD [employer] Luisa Flowers RCS Procedure CPT: Indications: R01.1 Murmur Cardiac Hx: Technical Quality: Fair Contrast 1: Total Dose (mL): 66 Contrast 2: Total Dose (mL): MEASUREMENTS (Male / Female) Normal Values 2D ECHO LV Diastolic Diameter PLAX 4.7 cm 4.2 - 5.9 / 3.9 - 5.3 cm LV Systolic Diameter PLAX 2.9 cm IVS Diastolic Thickness 0.7 cm 0.6 - 1.0 / 0.6 - 0.9 cm LVPW Diastolic Thickness 0.7 cm 0.6 - 1.0 / 0.6 - 0.9 cm LV Relative Wall Thickness 0.3 RV Internal Dim ED PLAX 2.9 cm LVOT Diameter 2.0 cm LV Diastolic Volume MOD BP 79.4 cm??? 67 - 155 / 56 - 104 cm??? LV Systolic Volume MOD BP 26.9 cm??? 22 - 58 / 19 - 49 cm??? LV Ejection Fraction MOD BP 66.1 % >= 55 % LV Diastolic Volume MOD 4C 98.9 cm??? LV Systolic Volume MOD 4C 27.8 cm??? LV Ejection Fraction MOD 4C 71.9 % LV Diastolic Length 4C 8.1 cm LV Systolic Length 4C 6.1 cm LV Diastolic Volume MOD 2C 63.0 cm??? LV Systolic Volume MOD 2C 23.9 cm??? LV Ejection Fraction MOD 2C 62.0 % LV Diastolic Length 2C 7.9 cm LV Systolic Length 2C 6.7 cm LA Volume 49.6 cm??? 18 - 58 / 22 - 52 cm??? LA Volume Index 27.1 cm???/m??? 16 - 28 cm???/m??? DOPPLER AV Peak Velocity 145.1 cm/s AV Peak Gradient 8.4 mmHg AV Mean Velocity 103.2 cm/s AV Mean Gradient 4.6 mmHg AV Velocity Time Integral 32.1 cm LVOT Peak Velocity 121.8 cm/s LVOT Peak Gradient 5.9 mmHg LVOT Velocity Time Integral 26.2 cm LVOT Stroke Volume 78.6 cm??? LVOT Stroke Volume Index 44.2 ml/m??? AV Area Cont Eq vti 2.4 cm??? AV Area Cont Eq pk 2.5 cm??? MV Area PHT 4.5 cm??? Mitral E Point Velocity 69.1 cm/s Mitral A Point Velocity 54.4 cm/s Mitral E to A Ratio 1.3 MV Deceleration Time 170.3 ms PV Peak Velocity 97.5 cm/s PV Peak Gradient 3.8 mmHg FINDINGS Left Ventricle Left ventricular ejection fraction is estimated at 60-65 %. Left ventricular cavity size normal. Left ventricular wall thickness normal. No obvious regional wall motion abnormalities. Right Ventricle Normal right ventricular size and function. Right Atrium Normal right atrial size. Left Atrium Normal left atrial size. Mitral Valve Structurally normal mitral valve. No mitral stenosis, regurgitation or prolapse. Aortic Valve Trileaflet aortic valve. No aortic valve stenosis or regurgitation. Tricuspid Valve Structurally normal tricuspid valve. No tricuspid stenosis, regurgitation or prolapse. Pulmonic Valve Structurally normal pulmonic valve. No pulmonic stenosis. No pulmonic regurgitation. Pericardium No pericardial effusion. Aorta Normal size aortic root and proximal ascending aorta. CONCLUSIONS Left ventricular ejection fraction 60-65% No mitral regurgitation No pericardial effusion Previewed by: Dr. Jasbir Blue DO (Electronically Signed) Final Date: 16 July 2023 14:53
== END | disposition home or self-care (01) ==
LOC: RADECHMAIN 09:54
PROVIDERS: ATTEND Family Medicine
DX: R01.1 Cardiac murmur, unspecified (principal)
CPT/HCPCS: 93306

== ENCOUNTER → 2024-03-23 | Outpatient (CLI) | payer MEDICARE, OTHER | END | disposition home or self-care (01) | LOC: RADMAMWWP 08:10 | PROVIDERS: ATTEND Family Medicine | DX: Z53.9 Procedure and treatment not carried out, unspecified reason (principal) ==

== ENCOUNTER → 2024-12-18 | Outpatient (CLI) | payer MEDICARE ==
--- NOTE | 2024-12-18 13:23 | MM ---
Reason for Exam: Screening (asymptomatic). Last mammogram was performed 1 year(s) and 10 month(s) ago. Patient History: Menarche at age 11. First Full-Term at age 1. Risk Values: Briana 5 year model risk: 0.6%. NCI Lifetime model risk: 6.9%. Prior Study Comparison: 08/25/2018 Bilateral Screening Mammogram, [facility]. 02/05/2023 Bilateral MG 3D screening mammo w/cad, [facility]. Tissue Density: There are scattered areas of fibroglandular density. Findings: Analyzed By CAD. Right breast: There is no suspicious group of microcalcifications or new suspicious mass. Left breast: There is no suspicious group of microcalcifications or new suspicious mass. Overall Assessment: Negative, BI-RAD 1 Management: Screening Mammogram of both breasts in [address] [facility] will attempt to contact patient to return for supplemental views and ultrasound if indicated. Patient should continue monthly self-breast exams. A clinical breast exam by your physician is recommended on an annual basis. This exam should not preclude additional follow-up of suspicious palpable abnormalities. Note on Briana scores and lifetime risk: 1. A Briana score greater than 3% is considered moderate risk. If this is the case, consider specialist referral to assess eligibility for a risk reducing agent. 2. If overall lifetime risk for the development of breast cancer is 20% or higher, the patient may qualify for future screening with alternating mammogram and breast MRI. [facility], , 12/18/2024 1:20 PM. Electronically signed and approved by: Christoph Elizabeth DO
== END | disposition home or self-care (01) ==
LOC: RADMAMWWP 12:04
PROVIDERS: ATTEND Family Medicine
DX: Z12.31 Encounter for screening mammogram for malignant neoplasm of breast (principal); R92.323 Mammographic fibroglandular density, bilateral breasts
CPT/HCPCS: 77063; 77067